=== PATIENT | female | born 1950 | race Hispanic/Latino ===

== ENCOUNTER → 2018-10-28 | Outpatient (CLI) | payer MEDICARE ==
[~2018-10-28] MED LIST: AEC81 PO; ATOR10 PO; GADODIAMIDE 10 MMOL/20 ML ML IV ONE; GLIM4TAB3 PO; HUMALOG; INSU100V12 SQ; INVOK100TB PO; LISI2.5T2 PO; PANT40TA25 PO; SERT50TA12 PO
== END | disposition home or self-care (01) ==
LOC: RAH 10:53
PROVIDERS: ATTEND Physical Medicine & Rehabilitation
DX: M51.36 Other intervertebral disc degeneration, lumbar region (principal); M48.07 Spinal stenosis, lumbosacral region; M51.26 Other intervertebral disc displacement, lumbar region; M47.817 Spondylosis without myelopathy or radiculopathy, lumbosacral region
CPT/HCPCS: 72158; A9579

== ENCOUNTER → 2019-07-28 | Outpatient (CLI) | payer MEDICARE ==
[~2019-07-28] MED LIST changes: -GADODIAMIDE 10 MMOL/20 ML ML IV ONE; -GLIM4TAB3 PO; +GLIM4TAB5 PO
== END | disposition home or self-care (01) ==
LOC: RAH 10:12
PROVIDERS: ATTEND Physical Medicine & Rehabilitation
DX: M43.16 Spondylolisthesis, lumbar region (principal); M25.78 Osteophyte, vertebrae
CPT/HCPCS: 72114

== ENCOUNTER → 2020-08-23 | Outpatient (CLI) | payer MEDICARE ==
[~2020-08-23] MED LIST changes: +GLIM4TAB36 PO; -GLIM4TAB5 PO; -PANT40TA25 PO; +PANT40TA54 PO; +REGADENOSON 0.4 MG/5 ML PF SYG IVP SCH
== END | disposition home or self-care (01) ==
LOC: SHCH 08:24
PROVIDERS: ATTEND Internal Medicine Cardiovascular Disease
DX: I25.10 Atherosclerotic heart disease of native coronary artery without angina pectoris (principal)
CPT/HCPCS: 78452; 93017; 96374; A9500 ×2; J2785

== ENCOUNTER 2020-11-16 07:05 | Inpatient (IN) | payer OTHER, MEDICARE ==
[2020-11-14 09:09] LABS: BASOPHILS % (AUTO) 0.8 % (0.0-5.0); EOSINOPHILS % (AUTO) 2.8 % (0.0-8.0); HEMATOCRIT 38.8 % (36-48); LYMPHOCYTES % (AUTO) 43.2 % (21.0-51.0); MEAN CORPUSCULAR HEMOGLOBIN 25.7 pg (27.0-33.0); MEAN CORPUSCULAR HGB CONC 29.9 g/dL (32.0-36.0); MEAN CORPUSCULAR VOLUME 85.8 fL (79-99); PLATELET COUNT (AUTO) 206 K/uL (130-400); RED BLOOD CELL COUNT(AUTO) 4.52 MIL/uL (4.00-5.50); WHITE BLOOD COUNT (AUTO) 6.2 K/uL (4.8-10.8)
[2020-11-14 09:17] LABS: CREATININE 1.1 mg/dL (0.5-1.5); POTASSIUM 4.4 mmol/L (3.5-5.1)
[2020-11-14 09:21] LABS: APPEARANCE,URINE Clear (CLEAR); BILIRUBIN,URINE Negative (NEGATIVE); COLOR,URINE Yellow (YELLOW); GLUCOSE, URINE (UA) >=1000 mg/dL (NEGATIVE); KETONES,URINE Negative (NEGATIVE); LEUKOCYTE ESTERASE ,URINE Moderate (NEGATIVE); NITRATE,URINE Negative (NEGATIVE); OCCULT BLOOD,URINE Negative (NEGATIVE); PROTEIN,URINE Negative (NEGATIVE); UROBILINOGEN,URINE 0.2 mg/dL (0.2-1.0)
[2020-11-14 09:28] LABS: INR 1.05 (0.85-1.15); PROTHROMBIN TIME 11.4 SEC (9.6-11.6)
[2020-11-14 10:00] LABS: BACTERIA,URINE Few /HPF (None Seen); RBC,URINE None Seen /HPF (0-1)
[2020-11-15 12:17] VITALS: BP 133/63
[~2020-11-16] VITALS: Ht 165.1 cm; Wt 73.9 kg
[~2020-11-16 07:05] MED LIST changes: -ATOR10 PO; +ATOR10TA69 PO; +CANA300T PO; +GABA-529 PO; +GABA300S PO; -GLIM4TAB36 PO; -HUMALOG; +INSU100I24 SQ; -INSU100V12 SQ; -INVOK100TB PO; +LIRA0.6P SQ; +LISI2.5T13 PO; -LISI2.5T2 PO; +MAGN500C15 PO; +ONE A DAY PO; -PANT40TA54 PO; -REGADENOSON 0.4 MG/5 ML PF SYG IVP SCH; +SERT-439 PO; -SERT50TA12 PO; +VITA1CAP85 PO
[2020-11-16 07:20] VITALS: BP 127/74
[2020-11-16] MEDS ORDERED: 0.9%NACL 1000ML 1,000 ML IV SCH ×2 (08:00→16:00)
[2020-11-16] MEDS ORDERED: NITROGLYCERIN 2 MG VIAL IV ONE (10:58)
[2020-11-16] MEDS ORDERED: BIVALIRUDIN 250 MG/VIAL IV ONE (10:58)
[2020-11-16] MEDS ORDERED: MIDAZOLAM HCL 1 MG/ML 2ML VIAL ONE (10:59)
[2020-11-16] MEDS ORDERED: IOHEXOL-350 75 ML VIAL IV ONE (10:59)
[2020-11-16] MEDS ORDERED: IOHEXOL-350 50ML VIAL IV ONE (10:59)
[2020-11-16] MEDS ORDERED: FENTANYL CITRATE PF 50 MCG/1 ML 2ML VIAL ONE (10:59)
[2020-11-16] MEDS ORDERED: LIDOCAINE HCL 400MG/20ML VIAL ONE (10:59)
[2020-11-16] MEDS ORDERED: IOHEXOL 350 MG/ML 100ML INFUS..BTL IV ONE ×2 (10:59→14:28)
[2020-11-16] MEDS ORDERED: ADENOSINE 6MG VIAL IV ONE (13:05)
[2020-11-16] MEDS ORDERED: PRASUGREL HCL 10 MG TABLET ONE (13:08)
[2020-11-16] MEDS ORDERED: HEPARIN 10,000 UNIT/10ML (1,000 UNIT/ML) VIAL ONE (13:08)
[2020-11-16] MEDS ORDERED: ATROPINE 1MG SYG IVP ONE (14:34)
[2020-11-16] MEDS ORDERED: ONDANSETRON 4MG INJ IVP PRN (16:00)
[2020-11-16] MEDS ORDERED: DEXTROSE 50%-WATER 50 ML DISP.SYRIN IV PRN (17:00)
[2020-11-16] MEDS ORDERED: GLUCAGON 1MG KIT 1 MG ML IM PRN (17:00)
[2020-11-16 17:18] VITALS: BP 133/63
[2020-11-16 20:02] VITALS: BP 116/53
[2020-11-16] MEDS: ATORVASTATIN 10 MG TABLET PO SCH (21:39)
[2020-11-16] MEDS: GABAPENTIN 300 MG CAPSULE PO SCH (21:39)
[2020-11-16] MEDS: INSULIN HUMULIN R 100 UNIT/ML 3ML SQ SCH (21:47)
[2020-11-16 23:40] VITALS: BP 121/59
[2020-11-17] VITALS (23 sets, daily range): BP systolic 100–130; BP diastolic 41–58
[2020-11-17] MEDS ORDERED: DOPAMINE HCL 400 MG/D5%-WATER 250 ML IV SCH (01:15)
[2020-11-17] MEDS ORDERED: DOPAMINE HCL 400 MG/D5%-WATER 250 ML IV ONE (01:24)
[2020-11-17 04:55] LABS: HEMATOCRIT 33.8 % (36-48); MEAN CORPUSCULAR HEMOGLOBIN 25.9 pg (27.0-33.0); MEAN CORPUSCULAR HGB CONC 31.1 g/dL (32.0-36.0); MEAN CORPUSCULAR VOLUME 83.5 fL (79-99); RED BLOOD CELL COUNT(AUTO) 4.05 MIL/uL (4.00-5.50); RED CELL DISTRIBUTION WIDTH 14.6 % (11.0-15.5); WHITE BLOOD COUNT (AUTO) 7.3 K/uL (4.8-10.8)
[2020-11-17 05:16] LABS: POTASSIUM 3.6 mmol/L (3.5-5.1); THYROID STIMULATING HORMONE 1.58 uIU/mL (0.36-3.74)
[2020-11-17] MEDS: INSULIN HUMULIN R 100 UNIT/ML 3ML SQ SCH ×4 (05:36→20:39)
[2020-11-17] MEDS: LISINOPRIL 2.5 MG TABLET PO SCH (09:00)
[2020-11-17] MEDS: PRASUGREL HCL 10 MG TABLET PO SCH (09:11)
[2020-11-17] MEDS: SERTRALINE HCL 50 MG TABLET PO SCH (12:19)
[2020-11-17] MEDS: ASPIRIN 81 MG EC TAB PO SCH (12:19)
[2020-11-17] MEDS: INSULIN DEGLUDEC 20 UNIT SQ SCH (12:20)
[2020-11-17] MEDS: CANAGLIFLOZIN 300 MG PO SCH (12:20)
[2020-11-17] MEDS: GABAPENTIN 100 MG CAPSULE PO SCH (12:21)
[2020-11-17] MEDS ORDERED: POTASSIUM CHLORIDE 20MEQ/100ML 100 ML IV PRN ×2 (12:30)
[2020-11-17] MEDS ORDERED: KCL 20 MEQ ERTAB PO PRN (12:30)
[2020-11-17] MEDS ORDERED: LIDOCAINE HCL-MPF 1% 2ML VIAL IV PRN ×2 (12:30)
[2020-11-17] MEDS: POTASSIUM CHLORIDE 10% ELIXIR 20 MEQ/15 ML UDCUP PO PRN ×2 (13:58→16:18)
[2020-11-17] MEDS ORDERED: VANCOMYCIN 1G/250ML KIT 250 ML IV PRN (15:30)
[2020-11-17] MEDS: ATORVASTATIN 10 MG TABLET PO SCH (20:37)
[2020-11-17] MEDS: GABAPENTIN 300 MG CAPSULE PO SCH (20:38)
[2020-11-18] VITALS (13 sets, daily range): BP systolic 77–124; BP diastolic 41–77
[2020-11-18] MEDS: INSULIN HUMULIN R 100 UNIT/ML 3ML SQ SCH ×5 (06:18→23:13)
[2020-11-18] MEDS: CANAGLIFLOZIN 300 MG PO SCH (08:00)
[2020-11-18] MEDS: INSULIN DEGLUDEC 20 UNIT SQ SCH (08:00)
[2020-11-18] MEDS: LISINOPRIL 2.5 MG TABLET PO SCH (09:00)
[2020-11-18] MEDS: GABAPENTIN 100 MG CAPSULE PO SCH (09:00)
[2020-11-18] MEDS: ASPIRIN 81 MG EC TAB PO SCH (09:00)
[2020-11-18] MEDS: SERTRALINE HCL 50 MG TABLET PO SCH (09:00)
[2020-11-18] MEDS: PRASUGREL HCL 10 MG TABLET PO SCH (09:00)
[2020-11-18] MEDS ORDERED: MEPERIDINE-PF 25 MG/ML SYG ONE ×3 (13:12→14:00)
[2020-11-18] MEDS ORDERED: BUPIVACAINE/PF 0.25% 30ML VIAL IJ ONE (13:12)
[2020-11-18] MEDS ORDERED: MIDAZOLAM HCL 1 MG/ML 2ML VIAL ONE ×3 (13:12→14:00)
[2020-11-18] MEDS ORDERED: LIDOCAINE HCL 1% MDV 50ML VIAL ONE (13:13)
[2020-11-18] MEDS ORDERED: VANCOMYCIN 1G/250ML KIT 500 ML IV ONE (13:13)
[2020-11-18] MEDS ORDERED: IODIXANOL 320 MG/ML 100 ML VIAL ONE (13:41)
[2020-11-18] MEDS ORDERED: ACETAMINOPHEN WITH CODEINE 1 TAB TAB PO PRN ×2 (15:30)
[2020-11-18] MEDS ORDERED: 0.9% NACL 250ML 250 ML IV SCH (17:45)
[2020-11-18 17:57] LABS: BASOPHILS % (AUTO) 0.6 % (0.0-5.0); EOSINOPHILS % (AUTO) 2.2 % (0.0-8.0); HEMATOCRIT 31.9 % (36-48); MEAN CORPUSCULAR HEMOGLOBIN 26.4 pg (27.0-33.0); MEAN CORPUSCULAR VOLUME 85.1 fL (79-99); MONOCYTES % (AUTO) 6.6 % (3.0-13.0); NEUTROPHILS % (AUTO) 69.3 % (40.0-77.0); PLATELET COUNT (AUTO) 150 K/uL (130-400); RED BLOOD CELL COUNT(AUTO) 3.75 MIL/uL (4.00-5.50); RED CELL DISTRIBUTION WIDTH 14.4 % (11.0-15.5); WHITE BLOOD COUNT (AUTO) 6.5 K/uL (4.8-10.8)
[2020-11-18] MEDS: ACETAMINOPHEN 325 MG TAB PO PRN (18:28)
[2020-11-18] MEDS: ATORVASTATIN 10 MG TABLET PO SCH (21:13)
[2020-11-18] MEDS: GABAPENTIN 300 MG CAPSULE PO SCH (21:13)
[2020-11-18] MEDS: CARVEDILOL 3.125 MG TABLET PO SCH (21:13)
[2020-11-19] VITALS (8 sets, daily range): BP systolic 88–131; BP diastolic 51–76
[2020-11-19] MEDS: INSULIN HUMULIN R 100 UNIT/ML 3ML SQ SCH ×3 (06:18→16:21)
[2020-11-19] MEDS ORDERED: CARV3.12 PO (07:51)
[2020-11-19] MEDS ORDERED: PRAS10TA6 PO (07:51)
[2020-11-19] MEDS: CANAGLIFLOZIN 300 MG PO SCH (08:00)
[2020-11-19] MEDS: INSULIN DEGLUDEC 20 UNIT SQ SCH (08:00)
[2020-11-19] MEDS: GABAPENTIN 100 MG CAPSULE PO SCH (08:45)
[2020-11-19] MEDS: ASPIRIN 81 MG EC TAB PO SCH (08:45)
[2020-11-19] MEDS: PRASUGREL HCL 10 MG TABLET PO SCH (08:45)
[2020-11-19] MEDS ORDERED: 0.9% NACL 500ML IV.SOLN 500 ML IV SCH (08:45)
[2020-11-19] MEDS: SERTRALINE HCL 50 MG TABLET PO SCH (08:46)
[2020-11-19] MEDS: ACETAMINOPHEN 325 MG TAB PO PRN (08:58)
[2020-11-19] MEDS: LISINOPRIL 2.5 MG TABLET PO SCH (09:00)
[2020-11-19] MEDS: CARVEDILOL 3.125 MG TABLET PO SCH (09:00)
== END 2020-11-19 20:09 | disposition home or self-care (01) | DRG 215 ==
LOC: DAH 07:05 → DAHIP 07:06 → 4AH 16:28
PROVIDERS: ADMIT Internal Medicine Cardiovascular Disease; ATTEND Internal Medicine Cardiovascular Disease
PROC: 027034Z Dilation of Coronary Artery, One Artery with Drug-eluting Intraluminal Device, Percutaneous Approach (ICD-10-PCS; principal; 2020-11-16)
PROC: 02HA3RZ Insertion of Short-term External Heart Assist System into Heart, Percutaneous Approach (ICD-10-PCS; 2020-11-16)
PROC: 02703ZZ Dilation of Coronary Artery, One Artery, Percutaneous Approach (ICD-10-PCS; 2020-11-16)
PROC: 5A0221D Assistance with Cardiac Output using Impeller Pump, Continuous (ICD-10-PCS; 2020-11-16)
PROC: 4A023N7 Measurement of Cardiac Sampling and Pressure, Left Heart, Percutaneous Approach (ICD-10-PCS; 2020-11-16)
PROC: B2111ZZ Fluoroscopy of Multiple Coronary Arteries using Low Osmolar Contrast (ICD-10-PCS; 2020-11-16)
PROC: B2151ZZ Fluoroscopy of Left Heart using Low Osmolar Contrast (ICD-10-PCS; 2020-11-16)
PROC: B2181ZZ Fluoroscopy of Left Internal Mammary Bypass Graft using Low Osmolar Contrast (ICD-10-PCS; 2020-11-16)
PROC: B21F1ZZ Fluoroscopy of Other Bypass Graft using Low Osmolar Contrast (ICD-10-PCS; 2020-11-16)
PROC: 0JH607Z Insertion of Cardiac Resynchronization Pacemaker Pulse Generator into Chest Subcutaneous Tissue and Fascia, Open Approach (ICD-10-PCS; 2020-11-18)
PROC: 02HL3JZ Insertion of Pacemaker Lead into Left Ventricle, Percutaneous Approach (ICD-10-PCS; 2020-11-18)
PROC: 02H63JZ Insertion of Pacemaker Lead into Right Atrium, Percutaneous Approach (ICD-10-PCS; 2020-11-18)
PROC: 02HK3JZ Insertion of Pacemaker Lead into Right Ventricle, Percutaneous Approach (ICD-10-PCS; 2020-11-18)
DX: I25.10 Atherosclerotic heart disease of native coronary artery without angina pectoris (principal); I50.22 Chronic systolic (congestive) heart failure; I25.5 Ischemic cardiomyopathy; I44.1 Atrioventricular block, second degree; I44.7 Left bundle-branch block, unspecified; E11.51 Type 2 diabetes mellitus with diabetic peripheral angiopathy without gangrene; I10 Essential (primary) hypertension; E78.5 Hyperlipidemia, unspecified; Z98.84 Bariatric surgery status; Z95.5 Presence of coronary angioplasty implant and graft; Z95.1 Presence of aortocoronary bypass graft; Z95.0 Presence of cardiac pacemaker; Z90.710 Acquired absence of both cervix and uterus; Z82.0 Family history of epilepsy and other diseases of the nervous system; Z82.3 Family history of stroke; Z82.5 Family history of asthma and other chronic lower respiratory diseases; Z83.3 Family history of diabetes mellitus; Z82.49 Family history of ischemic heart disease and other diseases of the circulatory system; Y82.8 Other medical devices associated with adverse incidents; S20.219A Contusion of unspecified front wall of thorax, initial encounter
CPT/HCPCS: 33225; 33249; 33990; 36415; 71045; 80048; 80061; 81001; 82948; 84436; 84443; 84484; 85025; 85027; 85610; 85730; 87088; 93005; 93308; 93459; 99156; 99157; A4606; C1760; C1769; C1884; C1887; C1894; C9604; G0378; J0153; J0461; J0583; J1265; J1644; J1815; J2175; J2250; J3010; J3370; J3490; J7030; J7050; Q9967

== ENCOUNTER → 2022-09-04 | Outpatient (CLI) | payer OTHER, MEDICARE ==
[~2022-09-04] MED LIST changes: +CARV3.12 PO; -MAGN500C15 PO; +MAGN500C4 PO; +PRAS10TA6 PO
== END | disposition home or self-care (01) ==
LOC: SHCH 09:58
PROVIDERS: ATTEND Internal Medicine Cardiovascular Disease
DX: I25.5 Ischemic cardiomyopathy (principal)
CPT/HCPCS: 93306

== ENCOUNTER → 2023-07-11 | Outpatient (CLI) | payer OTHER, MEDICARE ==
[~2023-07-11] MED LIST changes: -GABA300S PO; +GABA300S3 PO
[2023-07-11 16:16] LABS: POTASSIUM 4.1 mmol/L (3.5-5.1)
== END | disposition home or self-care (01) ==
LOC: LAB 13:29
PROVIDERS: ATTEND Internal Medicine Cardiovascular Disease
DX: E87.5 Hyperkalemia (principal)
CPT/HCPCS: 36415; 80048

== ENCOUNTER → 2023-09-03 | Outpatient (CLI) | payer OTHER, MEDICARE ==
[2023-09-03 12:20] LABS: POTASSIUM 3.9 mmol/L (3.5-5.1)
== END | disposition home or self-care (01) ==
LOC: LAB 09:28
PROVIDERS: ATTEND Internal Medicine Cardiovascular Disease
DX: I50.22 Chronic systolic (congestive) heart failure (principal)
CPT/HCPCS: 36415; 80048; 83880

== ENCOUNTER → 2023-10-10 | Outpatient (CLI) | payer OTHER, MEDICARE ==
[2023-10-10 12:21] LABS: CREATININE 1.1 mg/dL (0.5-1.5); POTASSIUM 3.5 mmol/L (3.5-5.1)
== END | disposition home or self-care (01) ==
LOC: LAB 09:26
PROVIDERS: ATTEND Internal Medicine Cardiovascular Disease
DX: I50.22 Chronic systolic (congestive) heart failure (principal); I25.10 Atherosclerotic heart disease of native coronary artery without angina pectoris
CPT/HCPCS: 36415; 80048; 83880